=== PATIENT | female | born 1935 | race Caucasian/White ===

== ENCOUNTER 2017-09-03 20:44 | Observation (INO) | payer MEDICARE, OTHER ==
[~2017-09-03 20:44] MED LIST: ACET325T11 PO; CALC600T10 PO; CRAN1000 PO; DICL75 PO; DIOV160T3 PO; META55.43 PO; OCUVTAB PO; PHILCAP2 PO; SALI0.65; TRAM50 PO; VITA500S3 PO; VYTO10TA32 PO; soy lecithin PO
[2017-09-03] MEDS ORDERED: SODIUM CHLORIDE 0.9% FLUSH 10 ML FLUSH IV FLUSH PRN ×2 (21:15→23:45)
[2017-09-03 21:19] VITALS: BP 141/67; PULSE 76; RESP 16; TEMP 98.4; O2SAT 96
--- NOTE | 2017-09-03 21:38 | RADRPT ---
EXAM DATE/TIME: 09/03/2017 21:28 [facility] COMPARISON: No previous studies available for comparison. INDICATIONS : Altered mental status. RADIATION DOSE: 35.14 CTDIvol (mGy) MEDICAL HISTORY : Hypertension. Cardiovascular disease SURGICAL HISTORY : None. ENCOUNTER: Initial ACUITY: 1 day PAIN SCALE: 0/10 LOCATION: cranial TECHNIQUE: Multiple contiguous axial images were obtained of the head. Using automated exposure control and adj ustment of the mA and/or kV according to patient size, radiation dose was kept as low as reasonably a chievable to obtain optimal diagnostic quality images. DICOM format image data is available electro nically for review and comparison. FINDINGS: CEREBRUM: The ventricles are normal for age. 6 mm left frontal osteoma or densely calcified meningioma. Adjace nt brain appears normal. No evidence of midline shift, concerning mass lesion, hemorrhage or acute in farction. No extra-axial fluid collections are seen. POSTERIOR FOSSA: The cerebellum and brainstem are intact. The 4th ventricle is midline. The cerebellopontine angle i s unremarkable. EXTRACRANIAL: There is mucoperiosteal thickening of the visualized ethmoid and left greater than right maxillary ai r cells. SKULL: The calvaria is intact. No evidence of skull fracture. CONCLUSION: No acute intracranial abnormality. Sinusitis. Slick Chou MD on September 03, 2017 at 21:34 Board Certified Radiologist. This report was verified electronically.
--- NOTE | 2017-09-03 21:43 | PD ---
HPI Chief Complaint: Back/ Neck Pain or Injury Time Seen by Provider: 20:52 Travel History International Travel<30 days: No Contact w/Intl Traveler<30days: No Traveled to known affect area: No History of Present Illness HPI Patient is an 82-year-old pleasant female in no obvious distress who presents emergency department for evaluation of low back pain and altered mental status. Per EMS the patient states that she has been having low back pain started yesterday after her stretching exercises, she pushed through her stretching exercises earlier this morning as well. According to EMS family saw her walking gingerly and thought she might be having a stroke so they called 911. Symptoms have been present all day and gradually worsening, context as above, associated with back pain. Patient's son arrives and states that when the patient tried to rise out of a chair she slumped over sideways and did not seem to be supporting one side of her body, he did also noticed that she had a facial droop on one side of her face as well. He cannot remember which. He is a former electro mechanical technologist and is fairly adamant that he saw the signs of a possible stroke. Patient on arrival really has no complaints, she states that her back was hurting her earlier and this is why she had the symptoms. PFSH Past Medical History Blood Disorders: No Heart Rhythm Problems: No Cancer: No Cardiovascular Problems: Yes High Cholesterol: Yes Chest Pain: No Congestive Heart Failure: No Dementia: Yes Diminished Hearing: No Endocrine: No Genitourinary: No Hypertension: Yes Immune Disorder: No Musculoskeletal: No Neurologic: Yes (SYNCOPE R/T SINUSES) Psychiatric: No Reproductive: No Respiratory: No Immunizations Current: Yes Menopausal: Yes : 3 Para: 2 Past Surgical History Other Surgery: Yes (SINUS SURGERY, RIGHT EAR SURGERY) Social History Alcohol Use: No Tobacco Use: No Substance Use: No Allergies-Medications (Allergen,Severity, Reaction): Coded Allergies: No Known Allergies (Unverified Allergy, Unknown, 09/03/17) Reported Meds & Prescriptions Reported Meds & Active Scripts Active Reported Saline Nasal [place] (Sodium Chloride) 0.65% [place] 2 [place] EACH NARE DIRECTED PRN Vytorin (Ezetimibe-Simvastatin) 10-20 Mg Tab 1 Tab PO HS Diovan Hct (Valsartan-Hydrochlorothiazide) 160-12.5 Mg Tab 1 Tab PO DAILY Review of Systems Except as stated in HPI: all other systems reviewed are Neg Physical Exam Narrative GENERAL: Well-developed, well-nourished elderly female in no obvious distress SKIN: Focused skin assessment warm/dry. HEAD: Atraumatic. Normocephalic. EYES: Pupils equal and round. No scleral icterus. No injection or drainage. ENT: No nasal bleeding or discharge. Mucous membranes pink and moist. NECK: Trachea midline. No JVD. CARDIOVASCULAR: Regular rate and rhythm. No murmur appreciated. RESPIRATORY: No accessory muscle use. Clear to auscultation. Breath sounds equal bilaterally. GASTROINTESTINAL: Abdomen soft, non-tender, nondistended. Hepatic and splenic margins not palpable. MUSCULOSKELETAL: No obvious deformities. No clubbing. No cyanosis. No edema. No midline CT or L-spine tenderness, extremities are atraumatic NEUROLOGICAL: Awake and alert and oriented, cranial nerves II through XII are grossly intact and nonfocal, 5 out of 5 strength in all 4 extremities. PSYCHIATRIC: Appropriate mood and affect; insight and judgment normal. Data Data Last Documented VS Vital Signs Date Time Temp Pulse Resp B/P (MAP) Pulse Ox O2 Delivery O2 Flow Rate FiO2 09/03/17 21:27 76 16 09/03/17 21:19 98.4 141/67 (91) 96 Orders Orders Electrocardiogram (09/03/17 21:08) Complete Blood Count With Diff (09/03/17 21:08) Comprehensive Metabolic Panel (09/03/17 21:08) Prothrombin Time / Inr (Pt) (09/03/17 21:08) Act Partial Throm Time (Ptt) (09/03/17 21:08) Troponin I (09/03/17 21:08) Ct Brain W/O Iv Contrast(Rout) (09/03/17 21:08) Blood Glucose (09/03/17 21:08) Ecg Monitoring (09/03/17 21:08) Iv Access Insert/Monitor (09/03/17 21:08) Oximetry (09/03/17 21:08) Sodium Chloride 0.9% Flush (Ns Flush) (09/03/17 21:15) Ct Lumb Spine W/O Contrast (09/03/17 ) Aspirin Chew (Aspirin Chew) (09/03/17 21:45) Admit Order (Ed Use Only) (09/03/17 ) TLSO (09/03/17 ) Labs Laboratory Tests Test 09/03/17 22:00 White Blood Count 11.6 TH/MM3 Red Blood Count 4.38 MIL/MM3 Hemoglobin 12.5 GM/DL Hematocrit 36.4 % Mean Corpuscular Volume 83.0 FL Mean Corpuscular Hemoglobin 28.4 PG Mean Corpuscular Hemoglobin Concent 34.2 % Red Cell Distribution Width 13.8 % Platelet Count 269 TH/MM3 Mean Platelet Volume 6.6 FL Neutrophils (%) (Auto) 73.9 % Lymphocytes (%) (Auto) 11.4 % Monocytes (%) (Auto) 10.7 % Eosinophils (%) (Auto) 3.7 % Basophils (%) (Auto) 0.3 % Neutrophils # (Auto) 8.6 TH/MM3 Lymphocytes # (Auto) 1.3 TH/MM3 Monocytes # (Auto) 1.2 TH/MM3 Eosinophils # (Auto) 0.4 TH/MM3 Basophils # (Auto) 0.0 TH/MM3 CBC Comment DIFF FINAL Differential Comment Prothrombin Time 10.2 SEC Prothromb Time International Ratio 1.0 RATIO Activated Partial Thromboplast Time 25.0 SEC Blood Urea Nitrogen 8 MG/DL Creatinine 0.73 MG/DL Random Glucose 104 MG/DL Total Protein 7.1 GM/DL Albumin 3.8 GM/DL Calcium Level 8.9 MG/DL Alkaline Phosphatase 59 U/L Aspartate Amino Transf (AST/SGOT) 26 U/L Alanine Aminotransferase (ALT/SGPT) 18 U/L Total Bilirubin 0.9 MG/DL Sodium Level 130 MEQ/L Potassium Level 3.9 MEQ/L Chloride Level 93 MEQ/L Carbon Dioxide Level 25.2 MEQ/L Anion Gap 12 MEQ/L Estimat Glomerular Filtration Rate 76 ML/MIN Troponin I LESS THAN 0.02 NG/ML MDM Medical Decision Making Medical Screen Exam Complete: Yes Emergency Medical Condition: Yes Differential Diagnosis Back pain, back fracture, TIA. Narrative Course Patient was roomed in the emergency department, she appears well and in no obvious distress. Head lengthy discussion with the family about the symptoms and the possibility of the facial droop, after much discussion I do not think that the facial droop could be excluded and needs further workup for TIA. The patient does have what appears to be a mild acute L5 compression fracture. Otherwise her initial workup was negative with an EKG CT head basic lab work: Last [address] 09/03/17 2108 Signed Impressions: Service Date/Time: Sunday, September 03, 2017 21:28 - CONCLUSION: No acute intracranial abnormality. Sinusitis. Slick Chou MD Lumbar Spine CT 09/03/17 0000 Signed Impressions: Service Date/Time: Sunday, September 03, 2017 21:32 - CONCLUSION: 1. Mild, acute superior endplate compression fracture of L5. No fracture-associated foraminal or spinal stenosis. 2. Multilevel degenerative changes as above. Slick Chou MD Discussed the results with the patient as well as Dr. Huertas for observation status and they are agreeable. Patient was placed in a TLSO brace and believe that the patient is stable for outpatient follow-up of the fracture Diagnosis Primary Impression: TIA (transient ischemic attack) Additional Impression: Compression fracture of L5 lumbar vertebra Admitting Information Admitting Physician Requests: Observation Condition: Stable Florencio Mix MD Sep 03, 2017 21:43
[2017-09-03] MEDS ORDERED: ASPIRIN 81 MG CHEW TAB CHEW ONE (21:45)
--- NOTE | 2017-09-03 21:55 | RADRPT ---
EXAM DATE/TIME: 09/03/2017 21:32 [facility] COMPARISON: SPINE LUMBAR COMPLETE W/OBLIQ, January 18, 2015, 16:44. INDICATIONS : Low back pain. RADIATION DOSE: 19.76 CTDIvol (mGy) MEDICAL HISTORY : Hypertension. Cardiovascular disease SURGICAL HISTORY : None. ENCOUNTER: Initial ACUITY: 1 day PAIN SCALE: 5/10 LOCATION: low back TECHNIQUE: Volumetric scanning of the lumbar spine was performed. Multiplanar reconstructions in the sagittal, coronal and oblique axial planes were performed. Using automated exposure control and adjustment of the mA and/or kV according to patient size, radiation dose was kept as low as reasonably achievable t o obtain optimal diagnostic quality images. DICOM format image data is available electronically for review and comparison. FINDINGS: Acute, mild severity superior endplate fracture seen of L5. No retropulsed fragments. No associated f oraminal or spinal stenosis. No subluxations. Mild disc space narrowing and mild bilateral facet osteoarthritis seen throughout the lumbar spine. M ore moderate to severe facet osteoarthritis is seen at L5/S1. There are broad-based protrusions at L2 /L3-L5/S1. There is moderate foraminal stenosis on the right at L2/L3. Moderate bilateral foraminal s tenosis seen at L4/L5 and moderate left foraminal stenosis seen at L5/S1. CONCLUSION: 1. Mild, acute superior endplate compression fracture of L5. No fracture-associated foraminal or spin al stenosis. 2. Multilevel degenerative changes as above. Slick Chou MD on September 03, 2017 at 21:49 Board Certified Radiologist. This report was verified electronically.
[2017-09-03] MEDS ORDERED: VYTO10TA8 PO (22:25)
[2017-09-03] MEDS ORDERED: DIOV160T3 PO (22:25)
[2017-09-03] MEDS ORDERED: SALI0.653 EACH NARE (22:25)
[2017-09-03 22:38] LABS: AUTOMATED NEUTROPHIL # 8.6 TH/MM3 (1.8-7.7); BASOPHIL % 0.3 % (0.0-2.0); EOSINOPHIL # 0.4 TH/MM3 (0-0.4); EOSINOPHIL % 3.7 % (0.0-4.0); HEMATOCRIT 36.4 % (35.0-46.0); HEMOGLOBIN 12.5 GM/DL (11.6-15.3); LYMPH % 11.4 % (9.0-44.0); LYMPHOCYTE # 1.3 TH/MM3 (1.0-4.8); MEAN CORPUSCULAR HEMOGLOBIN 28.4 PG (27.0-34.0); MEAN CORPUSCULAR HGB CONC 34.2 % (32.0-36.0); MEAN PLATELET VOLUME 6.6 FL (7.0-11.0); MONO % 10.7 % (0.0-8.0); MONOCYTE # 1.2 TH/MM3 (0-0.9); NEUT % 73.9 % (16.0-70.0); PLATELET COUNT 269 TH/MM3 (150-450); RED BLOOD COUNT 4.38 MIL/MM3 (4.00-5.30); RED CELL DISTRIBUTION WIDTH 13.8 % (11.6-17.2); WHITE BLOOD COUNT 11.6 TH/MM3 (4.0-11.0)
[2017-09-03 22:57] LABS: PROTHROMBIN TIME - PATIENT 10.2 SEC (9.8-11.6)
[2017-09-03 23:08] LABS: ALBUMIN 3.8 GM/DL (3.4-5.0); ALT (GPT) 18 U/L (10-53); AST (GOT) 26 U/L (15-37); BICARBONATE 25.2 MEQ/L (21.0-32.0); BLOOD UREA NITROGEN 8 MG/DL (7-18); CALCIUM 8.9 MG/DL (8.5-10.1); CHLORIDE 93 MEQ/L (98-107); CREATININE 0.73 MG/DL (0.50-1.00); GLOMERULAR FILTRATION RATE 76 ML/MIN (>89); GLUCOSE,RANDOM 104 MG/DL (74-106); SODIUM (NA) 130 MEQ/L (136-145)
[2017-09-03 23:10] LABS: ALKALINE PHOSPHATASE 59 U/L (45-117); TOTAL BILIRUBIN ADULT 0.9 MG/DL (0.2-1.0); TOTAL PROTEIN 7.1 GM/DL (6.4-8.2); TROPONIN I LESS THAN 0.02 NG/ML (0.02-0.05)
--- NOTE | 2017-09-03 23:44 | HHI.HP ---
HPI [facility] Primary [facility] Physician Unknown Admission Diagnosis Possible TIA, Acute COmpression fracutre L5 Diagnoses: (1) TIA (transient ischemic attack) Diagnosis: Principal (2) Compression fracture of L5 lumbar vertebra Diagnosis: Principal (3) Intractable back pain Diagnosis: Principal Travel History International Travel<30 Days: No Contact w/Intl Traveler <30 Da: No Traveled to Known Affected Are: No History of Present Illness This is an 82-year-old female with a PMH of HTN and Hyperlipidemia who presented to the ER with complaints of severe back pain starting earlier this morning. Pt states that she "just got out of bed like this". Denies any injury or fall. Does note that she does exercises for her legs where she holds onto the back of a chair and does side leg raises in addition to squats, however no pain w/ exercises yesterday. Today, attempted to get out of bed and had severe back pain, 10/10, non-radiating. Family also notes pt w/ gait instability, falling to one side and slight facial droop, pt however denies this. On arrival, BP 141/67, HR 76, O2 sat 96% RA, Afebrile. WBC 11.6. Chemistry essentially unremarkable except for GFR 76. Troponin negative. INR 1.0. CT Head with no acute findings. CT L-spine mild acute superior endplate compression fracture of L5, no fracture associated foraminal or spinal stenosis. Review of Systems Except as stated in HPI: all other systems reviewed are Neg ROS: 14 point review of systems otherwise negative. Past Family Social History Past Medical History PMH: HTN and Hyperlipidemia Past Surgical History PAST SURGICAL HISTORY: Sinus Surgery, Right Ear Surgery Allergies: Coded Allergies: No Known Allergies (Unverified Allergy, Unknown, 09/03/17) Family History PAST FAMILY HISTORY: Reviewed. No h/o DM or CAD Social History PAST SOCIAL HISTORY: Negative for alcohol, tobacco or drugs. Physical Exam Vital Signs Vital Signs Date Time Temp Pulse Resp B/P (MAP) Pulse Ox O2 Delivery O2 Flow Rate FiO2 09/03/17 21:27 76 16 09/03/17 21:19 98.4 76 16 141/67 (91) 96 Physical Exam PE: GENERAL: Extremely pleasant elderly white female in no acute distress. Normal speech. HEENT: PERRLA, EOMI. No scleral icterus or conjunctival pallor. No lid lag or facial droop. CARDIOVASCULAR: Regular rate and rhythm. No obvious murmurs to auscultation. No chest tenderness to palpation. RESPIRATORY: No obvious rhonchi or wheezing. Clear to auscultation. Breath sounds equal bilaterally. GASTROINTESTINAL: Abdomen soft, non-tender, nondistended. BS normal. MUSCULOSKELETAL: Extremities without clubbing, cyanosis, or edema. No obvious deformities. NEUROLOGICAL: Awake, alert and oriented x4. No focal neurologic deficits. Moving both upper and lower extremities spontaneously. Laboratory Laboratory Tests Test 09/03/17 22:00 White Blood Count 11.6 Red Blood Count 4.38 Hemoglobin 12.5 Hematocrit 36.4 Mean Corpuscular Volume 83.0 Mean Corpuscular Hemoglobin 28.4 Mean Corpuscular Hemoglobin Concent 34.2 Red Cell Distribution Width 13.8 Platelet Count 269 Mean Platelet Volume 6.6 Neutrophils (%) (Auto) 73.9 Lymphocytes (%) (Auto) 11.4 Monocytes (%) (Auto) 10.7 Eosinophils (%) (Auto) 3.7 Basophils (%) (Auto) 0.3 Neutrophils # (Auto) 8.6 Lymphocytes # (Auto) 1.3 Monocytes # (Auto) 1.2 Eosinophils # (Auto) 0.4 Basophils # (Auto) 0.0 CBC Comment DIFF FINAL Differential Comment Prothrombin Time 10.2 Prothromb Time International Ratio 1.0 Activated Partial Thromboplast Time 25.0 Blood Urea Nitrogen 8 Creatinine 0.73 Random Glucose 104 Total Protein 7.1 Albumin 3.8 Calcium Level 8.9 Alkaline Phosphatase 59 Aspartate Amino Transf (AST/SGOT) 26 Alanine Aminotransferase (ALT/SGPT) 18 Total Bilirubin 0.9 Sodium Level 130 Potassium Level 3.9 Chloride Level 93 Carbon Dioxide Level 25.2 Anion Gap 12 Estimat Glomerular Filtration Rate 76 Troponin I LESS THAN 0.02 Result Diagram: 09/03/17219909/03/172199 Caprini VTE Risk Assessment Caprini VTE Risk Assessment: No/Low Risk (score <= 1) Caprini Risk Assessment Model Point Value = 1 Point Value = 2 Point Value = 3 Point Value = 5 Age 41-60 Minor surgery BMI > 25 kg/m2 Swollen legs Varicose veins or History of unexplained or recurrent spontaneous Oral contraceptives or hormone replacement Sepsis (< 1 month) Serious lung disease, including pneumonia (< 1 month) Abnormal pulmonary function Acute myocardial infarction Congestive heart failure (< 1 month) History of inflammatory bowel disease Medical patient at bed rest Age 61-74 Arthroscopic surgery Major open surgery (> 45 min) Laparoscopic surgery (> 45 min) Malignancy Confined to bed (> 72 hours) Immobilizing plaster cast Central venous access Age >= 75 History of VTE Family history of VTE Factor V Leiden Prothrombin [id number] Lupus anticoagulant Anticardiolipin antibodies Elevated serum homocysteine Heparin-induced thrombocytopenia Other congenital or acquired thrombophilia Stroke (< 1 month) Elective arthroplasty Hip, pelvis, or leg fracture Acute spinal cord injury (< 1 month) Prophylaxis Regimen Total Risk Factor Score Risk Level Prophylaxis Regimen 0-1 Low Early ambulation 2 Moderate Order ONE of the following: *Sequential Compression Device (SCD) *Heparin 5000 units SQ BID 3-4 Higher Order ONE of the following medications: *Heparin 5000 units SQ TID *Enoxaparin/Lovenox 40 mg SQ daily (WT < 150 kg, CrCl > 30 mL/min) *Enoxaparin/Lovenox 30 mg SQ daily (WT < 150 kg, CrCl > 10-29 mL/min) *Enoxaparin/Lovenox 30 mg SQ BID (WT < 150 kg, CrCl > 30 mL/min) AND/OR *Sequential Compression Device (SCD) 5 or more Highest Order ONE of the following medications: *Heparin 5000 units SQ TID (Preferred with Epidurals) *Enoxaparin/Lovenox 40 mg SQ daily (WT < 150 kg, CrCl > 30 mL/min) *Enoxaparin/Lovenox 30 mg SQ daily (WT < 150 kg, CrCl > 10-29 mL/min) *Enoxaparin/Lovenox 30 mg SQ BID (WT < 150 kg, CrCl > 30 mL/min) AND *Sequential Compression Device (SCD) Assessment and Plan Problem List: (1) TIA (transient ischemic attack) ICD Code: G45.9 - Transient cerebral ischemic attack, unspecified (2) Compression fracture of L5 lumbar vertebra ICD Code: S32.050A - Wedge compression fracture of fifth lumbar vertebra, initial encounter for closed fracture (3) Intractable back pain ICD Code: M54.9 - Dorsalgia, unspecified Assessment and Plan A/P: 1. TIA: family reports gait instability and facial droop, now resolved, normal neuro exam. CT Head w/ no acute findings, images reviewed by me. Admit for Observation, check MRI Brain to eval for possible underlying CVA, Neuro Cheks. Check Lipid Profile, start ASA, resume home Vytorin. 2. L5 Compression Fx: CT L-Spine w/ mild, acute superior endplate compression fracture L5, no foraminal or spinal stenosis, images reviewed by me. TLSO, Consult NxSx for further evaluation, PT for eval/tx. 3. Intractable Back Pain: secondary to above, analgesics/antiemetics, TLSO brace. 4. DVT Prophylaxis: SCD/Teds. 5. Social work for DC planning as needed. 6. Case discussed at length with the ER physician, lab/record/imaging reviewed by me. Isidra Castellanos MD Sep 03, 2017 23:44
[2017-09-03] MEDS ORDERED: ACETAMINOPHEN/HYDROcodone 325 MG/5 MG TAB PO PRN (23:45)
[2017-09-03] MEDS ORDERED: LACTULOSE SYRUP 20 GM/30 ML CUP PO PRN (23:45)
[2017-09-03] MEDS ORDERED: SENNOSIDES 8.6 MG TAB PO PRN (23:45)
[2017-09-03] MEDS ORDERED: MAGNESIUM HYDROXIDE SUSP 30 ML CUP PO PRN (23:45)
[2017-09-03] MEDS ORDERED: MORPHINE SULFATE 2 MG/ML SYRINGE IV PUSH PRN (23:45)
[2017-09-03] MEDS ORDERED: ACETAMINOPHEN 325 MG TAB PO PRN (23:45)
[2017-09-03] MEDS ORDERED: BISACODYL 10 MG SUPP RECTAL PRN (23:45)
[2017-09-03] MEDS ORDERED: ONDANSETRON HCL 4 MG/2 ML VIAL IVP PRN (23:45)
[2017-09-04] VITALS (8 sets, daily range): BP systolic 117–149; BP diastolic 59–70; PULSE 65–82; RESP 16–20; TEMP 96.6–98.7; O2SAT 96–99
[2017-09-04 07:43] LABS: AUTOMATED NEUTROPHIL # 4.4 TH/MM3 (1.8-7.7); BASOPHIL % 0.2 % (0.0-2.0); EOSINOPHIL # 0.4 TH/MM3 (0-0.4); EOSINOPHIL % 5.9 % (0.0-4.0); HEMATOCRIT 34.7 % (35.0-46.0); HEMOGLOBIN 11.8 GM/DL (11.6-15.3); LYMPH % 19.6 % (9.0-44.0); LYMPHOCYTE # 1.4 TH/MM3 (1.0-4.8); MEAN CELL VOLUME 82.7 FL (80.0-100.0); MEAN CORPUSCULAR HEMOGLOBIN 28.2 PG (27.0-34.0); MEAN CORPUSCULAR HGB CONC 34.1 % (32.0-36.0); MEAN PLATELET VOLUME 6.5 FL (7.0-11.0); MONO % 14.4 % (0.0-8.0); MONOCYTE # 1.1 TH/MM3 (0-0.9); NEUT % 59.9 % (16.0-70.0); PLATELET COUNT 261 TH/MM3 (150-450); RED BLOOD COUNT 4.19 MIL/MM3 (4.00-5.30); RED CELL DISTRIBUTION WIDTH 13.6 % (11.6-17.2); WHITE BLOOD COUNT 7.3 TH/MM3 (4.0-11.0)
[2017-09-04 08:04] LABS: ALBUMIN 3.3 GM/DL (3.4-5.0); AST (GOT) 18 U/L (15-37); BICARBONATE 28.1 MEQ/L (21.0-32.0); BLOOD UREA NITROGEN 6 MG/DL (7-18); CALCIUM 8.9 MG/DL (8.5-10.1); CHLORIDE 98 MEQ/L (98-107); CREATININE 0.56 MG/DL (0.50-1.00); GLOMERULAR FILTRATION RATE 104 ML/MIN (>89); GLUCOSE,RANDOM 96 MG/DL (74-106); SODIUM (NA) 135 MEQ/L (136-145)
[2017-09-04 08:05] LABS: ALT (GPT) 14 U/L (10-53); CHOLESTEROL 131 MG/DL (120-200); TRIGLYCERIDES 44 MG/DL (42-150)
[2017-09-04 08:08] LABS: ALKALINE PHOSPHATASE 53 U/L (45-117); CHOLESTEROL/ HDL RATIO 1.71 RATIO; HDL CHOLESTEROL 76.3 MG/DL (40.0-60.0); LDL CHOLESTEROL 46 MG/DL (0-99); TOTAL BILIRUBIN ADULT 0.9 MG/DL (0.2-1.0); TOTAL PROTEIN 6.3 GM/DL (6.4-8.2)
[2017-09-04] MEDS: HYDROCHLOROTHIAZIDE 12.5 MG CAP PO SCH (08:18)
[2017-09-04] MEDS: SODIUM CHLORIDE 0.9% FLUSH 10 ML FLUSH IV FLUSH SCH ×2 (08:19→21:00)
[2017-09-04] MEDS: VALSARTAN 160 MG TAB PO SCH (08:19)
[2017-09-04] MEDS: DOCUSATE SODIUM 50 MG/SENNA 8.6 MG TAB PO SCH ×2 (08:20→21:19)
[2017-09-04] MEDS ORDERED: ASPIRIN EC 81 MG TABEC PO SCH (09:00)
[2017-09-04] MEDS ORDERED: ECASA81 PO (09:20)
--- NOTE | 2017-09-04 09:41 | HHI.PR ---
Subjective Remarks Follow up on patient with L5 compression fracture and possible TIA/CVA. Patient seen and examined. Patient has no complaints and is asking when she can go home. She denies any slurred speech, dizziness, lightheadedness, headache or vision changes. She denies any weakness or numbness/tingling. Per patients family, patient had episode of facial droop, weakness and falling to one side. Patients son is a former nicking machine operator is believes she was demonstrating signs of a stroke. Patient denies any of these symptoms. She denies any fever or chills. She denies any chest pain or shortness of breath. She denies any nausea, vomiting or abdominal pain. She does report some back pain when trying to get up. She denies any recent falls. She does do leg exercises daily. Objective Vitals Vital Signs Date Time Temp Pulse Resp B/P (MAP) Pulse Ox O2 Delivery O2 Flow Rate FiO2 09/04/17 07:24 65 09/04/17 03:32 98.4 67 17 132/59 (83) 96 09/04/17 01:13 98.2 65 16 136/63 (87) 96 09/03/17 21:27 76 16 09/03/17 21:19 98.4 76 16 141/67 (91) 96 Result Diagram: 09/04/17 0658 09/04/17 0658 Imaging Last Impressions Head CT 09/03/172107 Signed Impressions: Service Date/Time: Sunday, September 03, 2017 21:28 - CONCLUSION: No acute intracranial abnormality. Sinusitis. Slick Chou MD Lumbar Spine CT 09/03/17 0000 Signed Impressions: Service Date/Time: Sunday, September 03, 2017 21:32 - CONCLUSION: 1. Mild, acute superior endplate compression fracture of L5. No fracture-associated foraminal or spinal stenosis. 2. Multilevel degenerative changes as above. Slick Chou MD Objective Remarks GENERAL: Extremely pleasant WDWN elderly white female in no acute distress. Awake and alert. Sitting up in bed. No facial asymmetry noted. HEENT: NC/AT. PERRLA, EOMI. No scleral icterus or conjunctival pallor. No lid lag or facial droop. No nasal drainage or purulence. MMM. CARDIOVASCULAR: Regular rate and rhythm. No obvious murmurs to auscultation. No chest tenderness to palpation. RESPIRATORY: Nonlabored. No obvious rhonchi or wheezing. Clear to auscultation. Breath sounds equal bilaterally. GASTROINTESTINAL: Abdomen soft, non-tender, nondistended. BS normal. MUSCULOSKELETAL: Extremities without clubbing, cyanosis, or edema. No obvious deformities. NEUROLOGICAL: Awake, alert and oriented x4. No focal neurologic deficits. Moving both upper and lower extremities spontaneously. Normal speech. PSYCHIATRIC: Appropriate mood and affect. Normal insight and judgement. Procedures None Medications and IVs Current Medications Medications (Trade) Dose Ordered Sig/Piper Route Start Time Stop Time Status Last Admin (NS Flush) 2 ml UNSCH PRN IV FLUSH 09/03/17 23:45 (NS Flush) 2 ml BID IV FLUSH 09/04/17 09:00 09/04/17 08:19 (Zofran Inj) 4 mg Q6H PRN IVP 09/03/17 23:45 (Tylenol) 650 mg Q6H PRN PO 09/03/17 23:45 ([place] 5-325 Mg) 1 tab Q4H PRN PO 09/03/17 23:45 (Morphine Inj) 2 mg Q3H PRN IV PUSH 09/03/17 23:45 (Marielena-Colace) 1 tab BID PO 09/04/17 09:00 (Milk Of Magnesia Liq) 30 ml Q12H PRN PO 09/03/17 23:45 (Senokot) 17.2 mg Q12H PRN PO 09/03/17 23:45 (Dulcolax Supp) 10 mg DAILY PRN RECTAL 09/03/17 23:45 (Lactulose Liq) 30 ml DAILY PRN PO 09/03/17 23:45 (Ecotrin Ec) 81 mg DAILY PO 09/04/17 09:00 09/04/17 08:19 (Diovan) 160 mg DAILY PO 09/04/17 09:00 09/04/17 08:19 (Zetia) 10 mg HS PO 09/04/17 21:00 (Pravachol) 40 mg HS PO 09/04/17 21:00 (Microzide) 12.5 mg DAILY PO 09/04/17 09:00 09/04/17 08:18 A/P Problem List: (1) TIA (transient ischemic attack) ICD Code: G45.9 - Transient cerebral ischemic attack, unspecified (2) Compression fracture of L5 lumbar vertebra ICD Code: S32.050A - Wedge compression fracture of fifth lumbar vertebra, initial encounter for closed fracture (3) Intractable back pain ICD Code: M54.9 - Dorsalgia, unspecified Assessment and Plan 82-year-old female with a PMH of HTN and Hyperlipidemia who presented to the ER with complaints of severe back pain starting earlier this morning. Per patients son, she slumped over sideways and could not support one side of her body and had facial droop on one side of her face. Probable TIA: family reports gait instability and facial droop, now resolved, normal neuro exam. CT Head w/ no acute findings TG 44, Chol 131, LDL 46 -Consult Neurology, appreciate recommendations -MRI brain ordered/pending - follow up on results -obtain carotid US and echocardiogram -continue with neuro checks -continue on ASA 81mg daily -obtain TSH level and HgbA1c L5 Compression Fx: CT L-Spine w/ mild, acute superior endplate compression fracture L5, no foraminal or spinal stenosis. -Up with PT today. TLSO on when OOB. -Neurosurgery consulted, appreciate recommendations. ?candidate for kyphoplasty procedure. -obtain Vitamin D level Intractable Back Pain: secondary to above -continue on analgesics/antiemetics -TLSO brace Hypertension: chronic, BP controlled -continue on home dose of Diovan HCT Hyperlipidemia -continue on home dose of Vytorin DVT Prophylaxis: SCD/Teds Discharge Planning Not ready for discharge, TIA/CVA workup in progress. Acute compression fracture L spine, intractable back pain, awaiting Neurology and Neurosurgery consult/Sara Andrade Sep 04, 2017 09:41
--- NOTE | 2017-09-04 10:24 | EKG ---
Date Performed: 09/03/2017 Time Performed: 21:22:57 PTAGE: 82 years EKG: Sinus rhythm NORMAL ECG PREVIOUS TRACING : 04/30/2014 09.31 Since the previous tracing, no significant change noted DOCTOR: Gaurang Milner Interpretating Date/Time 09/04/2017 10:23:52
--- NOTE | 2017-09-04 10:32 | RADRPT ---
EXAM DATE/TIME: 09/04/2017 09:56 [facility] COMPARISON: No previous studies available for comparison. INDICATIONS : Slurred speech. MEDICAL HISTORY : Dementia. Hypertension. Syncope. Skin cancer. SURGICAL HISTORY : Tonsillectomy. Sinus surgery. Right ear surgery. Skin cancer removed. ENCOUNTER: Initial ACUITY: 1 day PAIN SCORE: 0/10 LOCATION: Bilateral neck PEAK SYSTOLIC VELOCITIES (cm/sec): ICA/CCA RATIO: Right: 1.9 Left: 0.9 ICA: Right: 103 Left: 111 CCA: Right: 55 Left: 123 ECA: Right: 126 Left: 105 VERTEBRAL: Right: 51 antegrade Left: 50 antegrade Elevated flow velocities and ICA/CCA ratios have been found to correlate with increased degrees of vessel stenosis, calculated as percentage of diameter relative to a normal segment of distal ICA/CCA FINDINGS: RIGHT CAROTID: No significant stenosis is visualized. The waveforms are within normal limits. LEFT CAROTID: No significant stenosis is visualized. The waveforms are within normal limits. VERTEBRAL ARTERIES: Antegrade flow is seen in both vertebral arteries. MISCELLANEOUS: None. CONCLUSION: 1. No evidence for hemodynamically significant stenosis. 2. Antegrade flow in the bilateral vertebral arteries. Kam Santo MD on September 04, 2017 at 10:29 Board Certified Radiologist. This report was verified electronically.
--- NOTE | 2017-09-04 12:22 | MB ---
cc: Yung BONDS DATE: 09/04/2017 CHIEF COMPLAINT: Back pain. HISTORY OF PRESENT ILLNESS: This 82-year-old female patient with multiple medical problems woke up in the morning complaining of severe pain without radiation to her legs. Because of this, the patient was brought to the ER for evaluation. She reports she has been doing some exercises for her lower back and she has a history of syncope in the past. The patient presently, as reported, states that she does not have any radiating pain, and the pain today has improved. The patient was seen in the ER, underwent CT scan of the LS spine, which showed a compression fracture of L5. Neurosurgery consult was placed. PAST MEDICAL HISTORY: Remarkable for hypertension and hyperlipidemia. PAST SURGICAL HISTORY: Reveals sinus surgery and right ear surgery. ALLERGIES: SHE HAS NO KNOWN ALLERGIES. FAMILY HISTORY: Unremarkable. SOCIAL HISTORY: Unremarkable as well. PHYSICAL EXAMINATION: VITAL SIGNS: Blood pressure 141/67, pulse is 76, temperature of 98.4, respirations 16, pulse oximetry of 16. HEENT: Unremarkable. GENERAL: The patient is pleasant, in no acute distress. NECK: Supple with good carotid pulses bilaterally. CHEST: Symmetric. LUNGS: Clear. HEART: Shows a regular rhythm with normal heart sounds. ABDOMEN: Soft and nontender. EXTREMITIES: Clear. NEUROLOGIC: She is alert and awake. She follows commands well. She has a fluent speech. She is oriented x 3. Her affect is normal. Cranial nerves 2-12 are intact. Motor exam is 5+/5. Sensory exam is intact to touch. Deep tendon reflexes are 1+ at all sites including the knees and trace at the ankles. IMAGING STUDIES: Review of a CT scan of the lumbar spine shows evidence of a mild acute fracture of the superior endplate of L5. No displacement is seen. OVERALL IMPRESSION: Mild compression fracture of L5. No instability is noted. PLAN: Recommendation at this time is to place the patient in a lumbar brace and start ambulating the patient. Since her pain is controlled, she may be discharged home from a neurosurgical standpoint. Yung LUTHER/SCOTT , 11:49 AM , 12:21 PM YUE
--- NOTE | 2017-09-04 12:55 | RADRPT ---
EXAM DATE/TIME: 09/04/2017 11:06 [facility] COMPARISON: CT BRAIN W/O CONTRAST, September 03, 2017, 21:28. INDICATIONS : TIA. MEDICAL HISTORY : None. SURGICAL HISTORY : Skin CA removal. ENCOUNTER: Initial ACUITY: 1 day PAIN SCORE: 0/10 LOCATION: cranial TECHNIQUE: Multiplanar, multisequence MRI of the brain was performed without contrast. FINDINGS: There is diffuse atrophy and moderate increased flair signal the periventricular white matter charact eristic of chronic microvascular ischemic disease. Mucous retention cyst left maxillary sinus. No sig ns of intracranial hemorrhage or concerning mass. There is a densely calcified extra-axial mass in th e left frontal region again noted measuring 8 mm in characteristic of a meningioma. CONCLUSION: Atrophy and white matter disease. No acute findings. Kam Santo MD on September 04, 2017 at 11:29 Board Certified Radiologist. This report was verified electronically.
--- NOTE | 2017-09-04 17:58 | HHI.FF ---
Face to Face Verification Diagnosis: (1) Impaired mobility and activities of daily living (2) Physical deconditioning (3) Balance problem (4) Compression fracture of L5 lumbar vertebra (5) Intractable back pain Physical Therapy Order: Evaluate and Treat, Improve ambulation, Strength and gait training I have seen patient Maxine Fontaine on 09/04/17. My clinical findings support the need for the requested home health care services because: Deconditioned w/ increased weakness High risk of falls I certify that my clinical findings support that this patient is homebound because: Unsteady gait/balance Unsafe to leave home unassisted Unable to use public transportation Sara Johnson Sep 04, 2017 17:58
[2017-09-04] MEDS ORDERED: EZETIMIBE 10 MG TAB PO SCH (21:00)
[2017-09-04] MEDS ORDERED: NON-FORMULARY DRUG (Ezetimibe-Simvastatin (Vytorin) 1 TAB) PO SCH (21:00)
[2017-09-04] MEDS ORDERED: PRAVASTATIN SOD 40 MG TAB PO SCH (21:00)
[2017-09-04] MEDS ORDERED: GLUCAGON 1 MG/ML VIAL OTHER PRN (21:45)
[2017-09-04] MEDS ORDERED: DEXTROSE 50% IN WATER 50 ML VIAL(D50) IV PUSH PRN (21:45)
[2017-09-04] MEDS ORDERED: SODIUM CHLORIDE 0.9% FLUSH 10 ML FLUSH IV FLUSH PRN (21:45)
[2017-09-05] VITALS (7 sets, daily range): BP systolic 116–150; BP diastolic 58–68; PULSE 68–87; RESP 16–20; TEMP 98.2–98.7; O2SAT 95–99
[2017-09-05] MEDS: INSULIN ASPART SUPPLEMENTAL SCALE SQ SCH ×3 (08:00→17:00)
[2017-09-05] MEDS ORDERED: ACETAMINOPHEN/HYDROcodone 325 MG/7.5 MG TAB PO PRN (08:30)
--- NOTE | 2017-09-05 08:40 | HHI.PR ---
Subjective Remarks Follow up on patient with L5 compression fracture and possible TIA/CVA. Patient seen and examined. Patient states she feels well. She is hoping to go home today. She denies any slurred speech, weakness, dizziness, lightheadedness , headache or vision changes. She does report back pain when she moves. She denies any lower extremity weakness, numbness/tingling or saddle paresthesias. She denies any fever or chills. She denies any chest pain or dyspnea. She reports problems with constipation and reports her last BM was 3 days ago. Objective Vitals Vital Signs Date Time Temp Pulse Resp B/P (MAP) Pulse Ox O2 Delivery O2 Flow Rate FiO2 09/05/17 07:27 98.4 72 18 150/65 (93) 95 09/05/17 03:23 98.4 72 16 116/58 (77) 98 09/04/17 23:07 98.7 70 16 133/65 (87) 99 09/04/17 22:27 98 09/04/17 21:30 18 09/04/17 20:00 97.8 82 16 117/67 (84) 98 09/04/17 16:00 97.1 72 20 149/70 (96) 97 I/O 09/04/17 09/04/17 09/04/17 09/05/17 09/05/17 09/05/17 07:00 15:00 23:00 07:00 15:00 23:00 Intake Total 400 ml Balance 400 ml Intake Oral 400 ml # Voids 3 Result Diagram: 09/04/17 0658 09/04/17 0658 Imaging Last Impressions Carotid Artery Ultrasound 09/04/17 0000 Signed Impressions: Service Date/Time: Monday, September 04, 2017 09:56 - CONCLUSION: 1. No evidence for hemodynamically significant stenosis. 2. Antegrade flow in the bilateral vertebral arteries. Kam Santo MD Brain MRI 09/04/17 0000 Signed Impressions: Service Date/Time: Monday, September 04, 2017 11:06 - CONCLUSION: Atrophy and white matter disease. No acute findings. Kam Santo MD Head CT 09/03/172107 Signed Impressions: Service Date/Time: Sunday, September 03, 2017 21:28 - CONCLUSION: No acute intracranial abnormality. Sinusitis. Slick Chou MD Lumbar Spine CT 09/03/17 0000 Signed Impressions: Service Date/Time: Sunday, September 03, 2017 21:32 - CONCLUSION: 1. Mild, acute superior endplate compression fracture of L5. No fracture-associated foraminal or spinal stenosis. 2. Multilevel degenerative changes as above. Slick Chou MD Objective Remarks GENERAL: Extremely pleasant WDWN elderly white female in no acute distress. Awake and alert. Sitting up in bed. No facial asymmetry noted. Appears comfortable. HEENT: NC/AT. PERRLA, EOMI. No scleral icterus or conjunctival pallor. No lid lag or facial droop. No nasal drainage or purulence. MMM. CARDIOVASCULAR: Regular rate and rhythm. No obvious murmurs to auscultation. No chest tenderness to palpation. RESPIRATORY: Nonlabored. No obvious rhonchi or wheezing. Clear to auscultation. Breath sounds equal bilaterally. GASTROINTESTINAL: Abdomen soft, non-tender, nondistended. BS normal. MUSCULOSKELETAL: Extremities without clubbing, cyanosis, or edema. No obvious deformities. ROM lumbar spine not tested. NEUROLOGICAL: Awake, alert and oriented x4. No focal neurologic deficits. Moving both upper and lower extremities spontaneously. Normal speech. PSYCHIATRIC: Appropriate mood and affect. Normal insight and judgement. Procedures None Medications and IVs Current Medications Medications (Trade) Dose Ordered Sig/Piper Route Start Time Stop Time Status Last Admin (Zofran Inj) 4 mg Q6H PRN IVP 09/03/17 23:45 (Tylenol) 650 mg Q6H PRN PO 09/03/17 23:45 ([place] 5-325 Mg) 1 tab Q4H PRN PO 09/03/17 23:45 (Morphine Inj) 2 mg Q3H PRN IV PUSH 09/03/17 23:45 09/04/17 21:20 (Marielena-Colace) 1 tab BID PO 09/04/17 09:00 09/04/17 21:19 (Milk Of Magnesia Liq) 30 ml Q12H PRN PO 09/03/17 23:45 (Senokot) 17.2 mg Q12H PRN PO 09/03/17 23:45 (Dulcolax Supp) 10 mg DAILY PRN RECTAL 09/03/17 23:45 (Lactulose Liq) 30 ml DAILY PRN PO 09/03/17 23:45 (Diovan) 160 mg DAILY PO 09/04/17 09:00 09/04/17 08:19 (Zetia) 10 mg HS PO 09/04/17 21:00 09/04/17 21:00 (Pravachol) 40 mg HS PO 09/04/17 21:00 09/04/17 21:19 (Microzide) 12.5 mg DAILY PO 09/04/17 09:00 09/04/17 08:18 (Vitamin D3) 1,000 units DAILY PO 09/05/17 09:00 (NS Flush) 2 ml BID IV FLUSH 09/05/17 09:00 (NS Flush) 2 ml UNSCH PRN IV FLUSH 09/04/17 21:45 (Aspirin) 325 mg DAILY PO 09/05/17 09:00 (Plavix) 75 mg DAILY PO 09/05/17 09:00 (NovoLOG SUPPLEMENTAL SCALE) 1 ACHS SQ 09/05/17 08:00 (D50w (Vial) Inj) 50 ml UNSCH PRN IV PUSH 09/04/17 21:45 (Glucagon Inj) 1 mg UNSCH PRN OTHER 09/04/17 21:45 A/P Problem List: (1) TIA (transient ischemic attack) ICD Code: G45.9 - Transient cerebral ischemic attack, unspecified (2) Compression fracture of L5 lumbar vertebra ICD Code: S32.050A - Wedge compression fracture of fifth lumbar vertebra, initial encounter for closed fracture (3) Intractable back pain ICD Code: M54.9 - Dorsalgia, unspecified Assessment and Plan 82-year-old female with a PMH of HTN and Hyperlipidemia who presented to the ER with complaints of severe back pain starting earlier this morning. Per patients son, she slumped over sideways and could not support one side of her body and had facial droop on one side of her face. Probable TIA: family reports gait instability and facial droop, now resolved, normal neuro exam. CT Head w/ no acute findings TG 44, Chol 131, LDL 46 MRI shows no acute findings Carotid US shows no e/o hemodynamically significant stenosis TSH WNL Neurology following, appreciate assistance. Started on Plavix and full dose ASA. Cleared for discharge from Neuro standpoint once echo results. -echocardiogram ordered/awaiting completion of study and report -continue with neuro checks -continue on ASA 325mg x 3 days and Plavix 75mg daily -HgbA1c 5.3 L5 Compression Fx: CT L-Spine w/ mild, acute superior endplate compression fracture L5, no foraminal or spinal stenosis. Nondisplaced. No instability. Cleared for discharge from neurosurgery -TLSO on when OOB. -pain management -PT recommends [facility] PT at discharge Vitamin D deficiency, mild Vit D level 27.7 -start on Vitamin D 1000mcg daily Hypertension: chronic, BP controlled -continue on home dose of Diovan HCT Hyperlipidemia -continue on home dose of Vytorin DVT Prophylaxis: SCD/Teds 1708 Echocardiogram resulted with EF 55-60%. Doppler parameters are consistent with impaired left ventricular relaxtion ( grade 1 diastolic dysfunction). Discharge patient to home Condition on discharge: Improved Heart healthy Diet as tolerated Activity per PT recommendations. Wear TLSO brace when out of bed Rx written: Plavix, ASA 325mg, Vitamin D Follow-up with primary care physician, neurosurgery and Neurology Sara Johnson Sep 05, 2017 08:40
[2017-09-05] MEDS ORDERED: CHOL1000 PO (08:42)
[2017-09-05] MEDS ORDERED: ASA325 PO ×2 (08:42→12:28)
[2017-09-05] MEDS ORDERED: PLAV75TA29 PO (08:42)
[2017-09-05] MEDS ORDERED: SODIUM CHLORIDE 0.9% FLUSH 10 ML FLUSH IV FLUSH SCH (09:00)
[2017-09-05] MEDS ORDERED: CLOPIDOGREL 75 MG TAB PO SCH (09:00)
[2017-09-05] MEDS ORDERED: CHOLECALCIFEROL (VIT D3) 1000 UNIT TAB PO SCH (09:00)
[2017-09-05] MEDS ORDERED: POLYETHYLENE GLYCOL 17 GM PKG PO SCH (09:00)
[2017-09-05] MEDS ORDERED: ASPIRIN 325 MG TAB PO SCH (09:00)
[2017-09-05] MEDS: VALSARTAN 160 MG TAB PO SCH (09:13)
[2017-09-05] MEDS: HYDROCHLOROTHIAZIDE 12.5 MG CAP PO SCH (09:13)
[2017-09-05] MEDS: DOCUSATE SODIUM 50 MG/SENNA 8.6 MG TAB PO SCH (09:15)
--- NOTE | 2017-09-05 11:37 | HHI.FF ---
Face to Face Verification Diagnosis: (1) Impaired mobility and activities of daily living (2) Physical deconditioning (3) Balance problem (4) Compression fracture of L5 lumbar vertebra (5) Intractable back pain (6) TIA (transient ischemic attack) Physical Therapy Order: Evaluate and Treat, Improve ambulation, Strength and gait training Speech Therapy Order: To Improve: Cognitive skills Home Health Nursing Order: Medical education Signs/symptoms of disease process Medication education-adverse effect Nursing assessment with vital signs Hospice Bereavement Coordinator Order: To Evaluate: Living conditions/environment (Please assess for fall risk/ safety hazards in the home), Support services Order: To Provide: Long range planning I have seen patient Maxine Fontaine on 09/05/17. My clinical findings support the need for the requested home health care services because: Ltd mobility - disease progression Deconditioned w/ increased weakness Limited ability to care for self Impaired cognition/judgement High risk of falls I certify that my clinical findings support that this patient is homebound because: Post-op weakness Impaired cognitive ability/safety Unsteady gait/balance Unsafe to leave home unassisted Unable to use public transportation Sara Johnson Sep 05, 2017 11:37
--- NOTE | 2017-09-05 12:08 | HHI.PR ---
Review/Management Diagnosis probable TIA L5 comp fx Plan follow up on echo Ok to dc from neurology standpoint if echo negative for embolic source Continue asa and plavix 3 days then stop asa follow up with me in my office in 2-3 weeks. Diagnosis/Plan: Subjective Subjective Comments No acute events reported No headache I spoke with her son who states he witnessed sudden onset of left facial droop and unsteady gait. She is doing better with no recurrent sx, but does c/o low back pain. Active Medications Current Medications Medications (Trade) Dose Ordered Sig/Piper Route Start Time Stop Time Status Last Admin (Zofran Inj) 4 mg Q6H PRN IVP 09/03/17 23:45 (Tylenol) 650 mg Q6H PRN PO 09/03/17 23:45 ([place] 5-325 Mg) 1 tab Q4H PRN PO 09/03/17 23:45 (Marielena-Colace) 1 tab BID PO 09/04/17 09:00 09/05/17 09:15 (Milk Of Magnesia Liq) 30 ml Q12H PRN PO 09/03/17 23:45 (Senokot) 17.2 mg Q12H PRN PO 09/03/17 23:45 (Dulcolax Supp) 10 mg DAILY PRN RECTAL 09/03/17 23:45 (Lactulose Liq) 30 ml DAILY PRN PO 09/03/17 23:45 (Diovan) 160 mg DAILY PO 09/04/17 09:00 09/05/17 09:13 (Zetia) 10 mg HS PO 09/04/17 21:00 09/04/17 21:00 (Pravachol) 40 mg HS PO 09/04/17 21:00 09/04/17 21:19 (Microzide) 12.5 mg DAILY PO 09/04/17 09:00 09/05/17 09:13 (Vitamin D3) 1,000 units DAILY PO 09/05/17 09:00 09/05/17 09:14 (NS Flush) 2 ml BID IV FLUSH 09/05/17 09:00 09/05/17 09:15 (NS Flush) 2 ml UNSCH PRN IV FLUSH 09/04/17 21:45 (Aspirin) 325 mg DAILY PO 09/05/17 09:00 09/05/17 09:14 (Plavix) 75 mg DAILY PO 09/05/17 09:00 09/05/17 09:14 (NovoLOG SUPPLEMENTAL SCALE) 1 ACHS SQ 09/05/17 08:00 (D50w (Vial) Inj) 50 ml UNSCH PRN IV PUSH 09/04/17 21:45 (Glucagon Inj) 1 mg UNSCH PRN OTHER 09/04/17 21:45 (Miralax) 17 gm DAILY PO 09/05/17 09:00 09/05/17 09:15 ([place] 7.5-325 Mg) 1 tab Q6H PRN PO 09/05/17 08:30 Allergies Allergies Coded Allergies No Known Allergies (Unverified Allergy, Unknown, 09/03/17) Exam I&O / VS Vital Signs Date Time Temp Pulse Resp B/P (MAP) Pulse Ox O2 Delivery O2 Flow Rate FiO2 09/05/17 08:46 75 09/05/17 07:27 98.4 72 18 150/65 (93) 95 09/05/17 03:23 98.4 72 16 116/58 (77) 98 09/04/17 23:07 98.7 70 16 133/65 (87) 99 09/04/17 22:27 98 09/04/17 21:30 18 09/04/17 20:00 97.8 82 16 117/67 (84) 98 09/04/17 16:00 97.1 72 20 149/70 (96) 97 Exam Comments alert, oriented , speech normal CN intact MOTOR 5/5 BUE and BLE Objective Diagnostic Tests MRI brain--normal carotid US--normal ECHO--pending Rober Harding MD PhD Sep 05, 2017 12:08
--- NOTE | 2017-09-05 12:29 | MB ---
cc: Rober Harding MD, PhD Rober Harding MD PhD DATE: 09/04/2017 REASON FOR CONSULTATION: Possible TIA and back pain. HISTORY OF PRESENT ILLNESS: Ms. Fontaine is an 82-year-old woman who was brought to the ER with low back pain, alteration in mental status. Her back pain began yesterday. ____ saw her walking carefully and thought she might be having a stroke. She called 911. Her son states that when she tried to get up from a chair, she would slump over sideways. He thought she may have had a facial droop on one side. However, the patient denies this. The son is a medical aide and was adamant that he saw facial droop and signs of a stroke. PAST MEDICAL HISTORY: History of dementia, sinus surgery, right ear surgery. MEDICATIONS AT HOME: She takes aspirin 325 mg daily, Vytorin, Diovan. NEUROLOGICAL EXAMINATION: VITAL SIGNS: Blood pressure is 117/67, pulse is 82, respiratory rate 16, temperature 97.8 degrees. Higher cortical function: Alert, oriented. Speech is fluent. She follows commands. Cranial nerves are intact. There is no facial droop presently. On motor examination, there is 5/5 strength of all groups in both upper and lower extremities. There is no drift. Fine motor skills are normal. IMAGING STUDIES: MRI of the brain shows atrophy, no acute change present. Carotid ultrasound is normal with no evidence of any significant stenosis. CT brain is normal. Lumbar C-spine CT shows a compression fracture, which is mild at L5. There is no displacement. LABORATORY DATA: White count 7300, hemoglobin 11.8, hematocrit 34%, platelet count 261,000. PT 10, INR 1, APTT 25. Sodium is 135, potassium 3.5, chloride 98, CO2 is 28, BUN is 6, creatinine 0.56, GFR is 104, glucose 96, cholesterol 131, LDL 46, HDL 76. IMPRESSION: 1. Small compression fracture at L5. Recommendations per neurosurgery. 2. Possible transient ischemic attack based on the son's description. The patient is not aware of these symptoms. However, according to the records, she has a mild dementia. It may be possible that she does not recall the event. Would recommend further evaluation with an echocardiogram. Would suggest as well starting Plavix 75 mg daily for the possibility of a transient ischemic attack and stopping aspirin within 3 days. Rober Harding MD, PhD ARETHA// , 09:37 PM , 09:59 PM
[2017-09-05 13:09] LABS: HEMOGLOBIN A1C 5.3 % (4.3-6.0)
--- NOTE | 2017-09-05 16:59 | ECHRPT ---
Indication: CONCLUSIONS Technically difficult study. The left ventricular systolic function is normal with an estimated ejection fraction in the range of 55-60%. Doppler parameters are consistent with impaired left ventricular relaxtion (grade 1 diastolic dysfun ction). Trace mitral valve regurgitation. There is trace tricuspid valve regurgitation. BP: / HR: Rhythm: MEASUREMENTS (Male / Female) Normal Values Technical Quality:Technically difficult study 2D ECHO LV Diastolic Diameter PLAX 3.3 cm 4.2 - 5.9 / 3.9 - 5.3 cm LV Systolic Diameter PLAX 2.6 cm IVS Diastolic Thickness 0.7 cm 0.6 - 1.0 / 0.6 - 0.9 cm LVPW Diastolic Thickness 0.5 cm 0.6 - 1.0 / 0.6 - 0.9 cm LV Relative Wall Thickness 0.4 RV Internal Dim ED PLAX 1.8 cm DOPPLER Mitral E Point Velocity 69.1 cm/s Mitral A Point Velocity 111.0 cm/s Mitral E to A Ratio 0.6 TR Peak Velocity 254.0 cm/s TR Peak Gradient 25.8 mmHg FINDINGS LEFT VENTRICLE Normal left ventricular size. Wall thickness is normal. The left ventricular systolic function is normal with an estimated ejection fraction in the range of 55-60%. Doppler parameters are consistent with impaired left ventricular relaxtion (grade 1 diastolic dysfun ction). RIGHT VENTRICLE Normal right ventricular size and systolic function. LEFT ATRIUM The left atrial size is normal. RIGHT ATRIUM The right atrial size is normal. ATRIAL SEPTUM Normal atrial septal thickness AORTA The aortic root and proximal ascending aorta are normal in size on limited imaging. MITRAL VALVE Mitral annular calcification is present. Trace mitral valve regurgitation. No mitral valve stenosis. AORTIC VALVE No aortic valve stenosis or regurgitation. TRICUSPID VALVE Grossly normal tricuspid valve. No tricuspid valve stenosis. There is trace tricuspid valve regurgitation. PULMONARY VALVE The pulmonary valve is not well visualized. VESSELS The inferior vena cava is normal in size. PERICARDIUM No pericardial effusion. Gaurang Milner DO (Electronically Signed) Final Date:05 September 2017 16:58
== END 2017-09-05 14:00 | disposition home or self-care (01) ==
LOC: NEPD 20:44 → NEDA 23:33 → NEPHCDU 09-04 00:38
PROVIDERS: ADMIT Hospitalist; ATTEND Hospitalist
DX: G45.9 Transient cerebral ischemic attack, unspecified (principal); S32.050A Wedge compression fracture of fifth lumbar vertebra, initial encounter for closed fracture; I10 Essential (primary) hypertension; E78.00 Pure hypercholesterolemia, unspecified; K59.00 Constipation, unspecified; E55.9 Vitamin D deficiency, unspecified; J34.1 Cyst and mucocele of nose and nasal sinus; G31.9 Degenerative disease of nervous system, unspecified; M47.897 Other spondylosis, lumbosacral region; M47.896 Other spondylosis, lumbar region; F03.90 Unspecified dementia, unspecified severity, without behavioral disturbance, psychotic disturbance, mood disturbance, and anxiety; Z85.828 Personal history of other malignant neoplasm of skin; X58.XXXA Exposure to other specified factors, initial encounter
CPT/HCPCS: 70450; 70551; 72131; 80053; 80061; 82306; 82607; 82948; 83036; 84443; 84484; 85025; 85610; 85730; 93005; 93306; 93880; 96374; 97110; 97163; 97530; 99285; G0378; G8987; G8988; J2270; L0200; L0484

== ENCOUNTER 2017-10-05 11:44 | Emergency (ER) | payer MEDICARE, OTHER ==
[~2017-10-05] VITALS: Ht 160 cm; Wt 58.0 kg
[~2017-10-05 11:44] MED LIST changes: -ACET325T11 PO; +ASA325 PO; -CALC600T10 PO; +CHOL1000 PO; -CRAN1000 PO; -DICL75 PO; -META55.43 PO; -OCUVTAB PO; -PHILCAP2 PO; +PLAV75TA29 PO; -SALI0.65; +SALI0.653 EACH NARE; -TRAM50 PO; -VITA500S3 PO; -VYTO10TA32 PO; +VYTO10TA8 PO; -soy lecithin PO
[2017-10-05 11:48] VITALS: BP 123/60; PULSE 95; RESP 16; TEMP 99
[2017-10-05] MEDS ORDERED: AGGR20025 PO (12:02)
--- NOTE | 2017-10-05 13:01 | RADRPT ---
EXAM DATE: 10/05/2017 12:56 PM EDT AGE/SEX: 82 years / Female INDICATIONS: Pelvic pain after fall. CLINICAL DATA: This is the patient's initial encounter. Patient reports that signs and symptoms have been present for 1 day and indicates a pain score of 5/10. MEDICAL/SURGICAL HISTORY: . Dementia. Hypertension. Syncope. Skin cancer. . Tonsillectomy. Sin us surgery. Right ear surgery. Skin cancer removed. COMPARISON: [facility], PELVIS AP ONLY, 01/18/2015. . FINDINGS: Single AP view of the pelvis demonstrates no fracture or dislocation. Both hip joints demonstrate mil d osteoarthritis similar to the prior examination. Sacroiliac joints demonstrate no abnormality. No s oft tissue abnormality or radiopaque foreign body is identified. CONCLUSION: No acute pelvis abnormality is identified. Electronically signed by: Slick Torre MD 10/05/2017 1:00 PM EDT
--- NOTE | 2017-10-05 13:02 | RADRPT ---
EXAM DATE: 10/05/2017 12:56 PM EDT AGE/SEX: 82 years / Female INDICATIONS: Fall. Previous L5 fracture from 5 weeks ago, re-check. CLINICAL DATA: This is the patient's initial encounter. Patient reports that signs and symptoms have been present for 1 day and indicates a pain score of 0/10. MEDICAL/SURGICAL HISTORY: . Dementia. Hypertension. Syncope. Skin cancer. . Tonsillectomy. Sin us surgery. Right ear surgery. Skin cancer removed. COMPARISON: [facility] [place], CT LUMBAR SPINE W/O CONTRAST, 09/03/2017. . 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 Mild compression deformity of the superior endplate of L5 appears similar to CT examination from August 27, 2016. No n ew fracture identified. CONCLUSION: Mild compression fracture superior endplate of L5 similar in appearance to CT examination from September 03. Electronically signed by: Alen Giles MD 10/05/2017 1:00 PM EDT
--- NOTE | 2017-10-05 13:04 | RADRPT ---
EXAM DATE: 10/05/2017 12:57 PM EDT AGE/SEX: 82 years / Female INDICATIONS: Right shoulder pain after fall. CLINICAL DATA: This is the patient's initial encounter. Patient reports that signs and symptoms have been present for 1 day and indicates a pain score of 6/10. MEDICAL/SURGICAL HISTORY: . Dementia. Hypertension. Syncope. Skin cancer. . Tonsillectomy. Sin us surgery. Right ear surgery. Skin cancer removed. COMPARISON: No prior [facility] exams available for comparison. FINDINGS: 4 views of the right shoulder demonstrate no fracture or dislocation. Acromioclavicular joint is inta ct. No acute soft tissue abnormality is identified. Visualized right ribs demonstrate no acute fractu re. Lungs demonstrate no acute finding. CONCLUSION: No acute right shoulder abnormality is identified. Electronically signed by: Slick Torre MD 10/05/2017 1:03 PM EDT
--- NOTE | 2017-10-05 13:13 | RADRPT ---
EXAM DATE: 10/05/2017 1:06 PM EDT AGE/SEX: 82 years / Female INDICATIONS: Right elbow pain and laceration after fall. CLINICAL DATA: This is the patient's initial encounter. Patient reports that signs and symptoms have been present for 1 day and indicates a pain score of 10/10. MEDICAL/SURGICAL HISTORY: . Dementia. Hypertension. Syncope. Skin cancer. . Tonsillectomy. Sin us surgery. Right ear surgery. Skin cancer removed. COMPARISON: No prior [place] exams available for comparison. FINDINGS: 4 views of the right elbow demonstrate no fracture or dislocation. No joint effusion is identified. N o soft tissue abnormality or radiopaque foreign body is appreciated. CONCLUSION: No acute right elbow abnormality is identified. Electronically signed by: Slick Torre MD 10/05/2017 1:12 PM EDT
--- NOTE | 2017-10-05 13:15 | PD ---
HPI Chief Complaint: fall Time Seen by Provider: 11:57 Travel History International Travel<30 days: No Contact w/Intl Traveler<30days: No Traveled to known affect area: No History of Present Illness HPI 82-year-old female was walking into the house and not using her cane properly when her family member states she fell. Her family member states she has dementia and is near her baseline. The patient did not hit her head or lose consciousness. She notes pain to her right shoulder and elbow. The daughter is also concerned given she had a recent injury to her back. The patient denies back pain or other concurrent complaints. The fall was from standing. History is mainly supplemented from the daughter. PFSH Past Medical History Asthma: No Blood Disorders: No Anxiety: No Depression: No Heart Rhythm Problems: No Cancer: No Cardiovascular Problems: No High Cholesterol: No Chemotherapy: No Chest Pain: No Congestive Heart Failure: No COPD: No Dementia: Yes Diabetes: No Diminished Hearing: No Endocrine: No Genitourinary: No Hypertension: Yes Immune Disorder: No Musculoskeletal: No Neurologic: Yes (syncope) Psychiatric: No Reproductive: No Respiratory: No Immunizations Current: Yes Radiation Therapy: No Sleep Apnea: No Thyroid Disease: No ?: Not Menopausal: Yes : 3 Para: 2 Past Surgical History Other Surgery: Yes (SINUS SURGERY, RIGHT EAR SURGERY) Social History Alcohol Use: No Tobacco Use: No Substance Use: No Allergies-Medications (Allergen,Severity, Reaction): Coded Allergies: No Known Allergies (Unverified Allergy, Unknown, 10/05/17) Reported Meds & Prescriptions Reported Meds & Active Scripts Active Gnp Vitamin D3 Extra Stre (Cholecalciferol) 1,000 Unit Tab 1,000 Units PO DAILY Reported Aggrenox (Dipyridamole/Aspirin) 200-25 Mg Cap 1 Cap PO BID Saline Nasal [place] (Sodium Chloride) 0.65% [place] 2 [place] EACH NARE DIRECTED PRN Vytorin (Ezetimibe-Simvastatin) 10-20 Mg Tab 1 Tab PO HS Diovan Hct (Valsartan-Hydrochlorothiazide) 160-12.5 Mg Tab 1 Tab PO DAILY Review of Systems ROS Limitations: Poor Historian Except as stated in HPI: all other systems reviewed are Neg Physical Exam Exam Limitations: Poor Historian Narrative General: 82 y/o patient in no apparent distress Skin: trauma noted to right elbow with laceration Eyes: Pupils equal, eomi ENT: no septal hematoma NECK: no pain with palpation and range of motion in midline Cardiovascular: Regular rate and rhythm Respiratory: Normal respiratory effort noted, clear to auscultation bilaterally Abdomen: soft, nontender, nondistended Back: No step-offs, midline spine nontender with palpation Extremities: Pain with palpation of right shoulder and elbow, neurovascularly intact, no pain with rom of other joints Neuro: awake, alert, sensation and motor grossly intact Data Data Last Documented VS Vital Signs Date Time Temp Pulse Resp B/P (MAP) Pulse Ox O2 Delivery O2 Flow Rate FiO2 10/05/17 11:55 96 Room Air 10/05/17 11:48 99.0 95 16 123/60 (81) Orders Orders Elbow, Complete (4 Vws) (10/05/17 12:06) Shoulder, Complete (>2vws) (10/05/17 12:06) Pelvis, Ap Only (Routine) (10/05/17 ) Spine, Lumbar Comp W/Obliq (10/05/17 ) Ed Discharge Order (10/05/17 13:39) MDM Medical Decision Making Medical Screen Exam Complete: Yes Emergency Medical Condition: Yes Medical Record Reviewed: Yes (Past history confirmed) Interpretation(s) Last 24 hours Impressions Shoulder X-Ray 10/05/17 1206 Signed Impressions: CONCLUSION: No acute right shoulder abnormality is identified. Elbow X-Ray 10/05/17 1206 Signed Impressions: CONCLUSION: No acute right elbow abnormality is identified. Pelvis X-Ray 10/05/17 0000 Signed Impressions: CONCLUSION: No acute pelvis abnormality is identified. Lumbar Spine X-Ray 10/05/17 0000 Signed Impressions: CONCLUSION: Mild compression fracture superior endplate of L5 similar in appearance to CT e xamination from September 03. Differential Diagnosis Fracture, strain, laceration Narrative Course Will check trauma imaging and laceration will be repaired. Family agrees to limited trauma imaging workup and states she recently had a workup for possible syncope xrays without emergent injury. Laceration was a dirty wound so will place on Keflex. Patient denies any new complaints and states that they are feeling better. family happy with care, all questions answered. family knows that follow up is incumbent on them and to return to the emergency room immediately if new or worsening symptoms develop. family given strict return precautions, vitals reviewed and are normal, agrees to further workup as an outpatient. Diagnosis Primary Impression: Elbow laceration Qualified Codes: S51.011A - Laceration without foreign body of right elbow, initial encounter Additional Impression: Right shoulder pain Qualified Codes: M25.511 - Pain in right shoulder Patient Instructions: General Instructions Additional Instructions: return as needed, follow with primary this week, tylenol as needed Med/Other Pt SpecificInfo: Prescription(s) given Scripts Cephalexin (Keflex) 500 Mg Cap 500 MG PO Q12H for Infection for 7 Days, #14 CAP 0 Refills Prov: Brisa Santizo MD 10/05/17 Disposition: 01 DISCHARGE HOME Condition: Stable Brisa Santizo MD October 05, 2017 13:15
--- NOTE | 2017-10-05 13:31 | PD ---
Physical Exam Time Seen by Provider: 13:30 Data Data Last Documented VS Vital Signs Date Time Temp Pulse Resp B/P (MAP) Pulse Ox O2 Delivery O2 Flow Rate FiO2 10/05/17 11:55 96 Room Air 10/05/17 11:48 99.0 95 16 123/60 (81) Orders Orders Elbow, Complete (4 Vws) (10/05/17 12:06) Shoulder, Complete (>2vws) (10/05/17 12:06) Pelvis, Ap Only (Routine) (10/05/17 ) Spine, Lumbar Comp W/Obliq (10/05/17 ) MDM Medical Record Reviewed: Yes Supervised Visit with SONIYA: No Procedures Procedure Narrative LACERATION LOCATION: Right elbow LENGTH: 5 cm NUMBER OF STITCHES/LINDA: 4 linda REPAIR: The area of the laceration was prepped with Betadine and sterilely draped. The laceration was infiltrated with 1% lidocaine without epinephrine. The wound was copiously irrigated and explored without evidence of foreign body , tendon injury or neurovascular injury. The wound was closed using linda. This was a single layer repair. A sterile dressing was applied. The patient was advised to keep the dressing clean and dry. Patient tolerated the procedure well. Condition: Stable AndrewBouchra NAVARRO October 05, 2017 13:31
[2017-10-05] MEDS ORDERED: CEPH-460 PO (13:40)
--- NOTE | 2017-10-06 14:27 | EKG ---
Date Performed: 10/05/2017 Time Performed: 11:57:40 PTAGE: 82 years EKG: Sinus rhythm NORMAL ECG INTERPRETATION BASED ON A DEFAULT AGE OF 40 YEARS PREVIOUS TRACING : 09/03/2017 21.22 DOCTOR: Michael Aldridge Interpretating Date/Time 10/06/2017 14:25:46
== END 2017-10-05 14:18 | disposition home or self-care (01) ==
LOC: NEPE 11:44
DX: S51.011A Laceration without foreign body of right elbow, initial encounter (principal); M25.511 Pain in right shoulder; I10 Essential (primary) hypertension; W19.XXXA Unspecified fall, initial encounter; Y93.01 Activity, walking, marching and hiking; Y92.009 Unspecified place in unspecified non-institutional (private) residence as the place of occurrence of the external cause
CPT/HCPCS: 12002; 72110; 72170; 73030; 73080; 93005

== ENCOUNTER 2017-10-13 16:31 | Emergency (ER) | payer MEDICARE, OTHER ==
[~2017-10-13] VITALS: Ht 165.1 cm; Wt 57.0 kg
[~2017-10-13 16:31] MED LIST changes: +AGGR20025 PO; -ASA325 PO; +CEPH-460 PO; -PLAV75TA29 PO
[2017-10-13 16:34] VITALS: BP 112/53; PULSE 85; RESP 18; TEMP 98.2; O2SAT 97
[2017-10-13] MEDS ORDERED: ACETAMINOPHEN 325 MG TAB PO ONE (17:15)
[2017-10-13] MEDS ORDERED: SULFAMETHOXAZOLE-TRIMETHOPRIM DS 800-160 MG TAB PO ONE (17:15)
--- NOTE | 2017-10-13 17:21 | PD ---
HPI Chief Complaint: Fall Time Seen by Provider: 16:56 Travel History International Travel<30 days: No Contact w/Intl Traveler<30days: No Traveled to known affect area: No History of Present Illness HPI 82-year-old female complains of right shoulder pain. Patient fell 8 days ago. Patient was seen in emergency room an x-ray of the right shoulder and right elbow was done at that time which shows no acute bony injury. Patient had laceration the right elbow olecranon area. Laceration was repaired with linda. Patient was given prescription for Keflex 500 mg twice a day. Last dose of Keflex was yesterday. Family member noticed increasing discoloration on the right upper arm recently. Patient also complains of increasing pain on the right shoulder for the past several days. Patient denies any new injury. Family member reported no fever chills. Family member states that patient had trouble ambulating because of low back pain and arm pain. Patient has appointment with orthopedist for follow-up. Patient had home health care. PFSH Past Medical History Hx Anticoagulant Therapy: Yes (AGGRENOX) Asthma: No Blood Disorders: No Anxiety: No Depression: No Heart Rhythm Problems: No Cancer: No Cardiovascular Problems: No High Cholesterol: No Chemotherapy: No Chest Pain: No Congestive Heart Failure: No COPD: No Dementia: Yes Diabetes: No Diminished Hearing: No Endocrine: No Genitourinary: No Hypertension: Yes Immune Disorder: No Musculoskeletal: No Neurologic: Yes (syncope) Psychiatric: No Reproductive: No Respiratory: No Immunizations Current: Yes Radiation Therapy: No Sleep Apnea: No Thyroid Disease: No Tetanus Vaccination: Unknown Influenza Vaccination: Yes Menopausal: Yes : 3 Para: 2 Past Surgical History Other Surgery: Yes (SINUS SURGERY, RIGHT EAR SURGERY) Social History Alcohol Use: No Tobacco Use: No Substance Use: No Allergies-Medications (Allergen,Severity, Reaction): Coded Allergies: No Known Allergies (Unverified Allergy, Unknown, 10/13/17) Reported Meds & Prescriptions Reported Meds & Active Scripts Active Bactrim DS (Sulfamethoxazole-Trimethoprim) 800-160 Mg Tab 1 Tab PO BID Gnp Vitamin D3 Extra Stre (Cholecalciferol) 1,000 Unit Tab 1,000 Units PO DAILY Reported Aggrenox (Dipyridamole/Aspirin) 200-25 Mg Cap 1 Cap PO BID Saline Nasal [place] (Sodium Chloride) 0.65% [place] 2 [place] EACH NARE DIRECTED PRN Vytorin (Ezetimibe-Simvastatin) 10-20 Mg Tab 1 Tab PO HS Diovan Hct (Valsartan-Hydrochlorothiazide) 160-12.5 Mg Tab 1 Tab PO DAILY Review of Systems General / Constitutional: No: Fever Eyes: No: Visual changes HENT: No: Headaches Cardiovascular: No: Chest Pain or Discomfort Respiratory: No: Shortness of Breath Gastrointestinal: No: Abdominal Pain Genitourinary: No: Dysuria Musculoskeletal: Positive: Pain Skin: No Rash Neurologic: No: Weakness Psychiatric: No: Depression Endocrine: No: Polydipsia Hematologic/Lymphatic: No: Easy Bruising Physical Exam Narrative GENERAL: Well-nourished, well-developed patient. SKIN: Focused skin assessment warm/dry. HEAD: Normocephalic. EYES: No scleral icterus. No injection or drainage. NECK: Supple, trachea midline. No JVD or lymphadenopathy. CARDIOVASCULAR: Regular rate and rhythm without murmurs, gallops, or rubs. RESPIRATORY: Breath sounds equal bilaterally. No accessory muscle use. GASTROINTESTINAL: Abdomen soft, non-tender, nondistended. MUSCULOSKELETAL: Patient has ecchymosis on the medial aspect of the right upper arm. No redness no heat noted. Mild to moderate diffuse tenderness of the right shoulder joint. Healing wound right olecranon area. Mild redness associate with the wound. Linda in place. Full range of motion of shoulder and the elbow. BACK: Nontender without obvious deformity. No CVA tenderness. Neurologic exam normal. Data Data Last Documented VS Vital Signs Date Time Temp Pulse Resp B/P (MAP) Pulse Ox O2 Delivery O2 Flow Rate FiO2 10/13/17 16:34 98.2 85 18 112/53 (72) 97 Orders Orders Shoulder, Limited(2vws) (10/13/17 17:08) Sulfamet-Trimeth Ds 800-160 Mg (Bactrim (10/13/17 17:15) Acetaminophen (Tylenol) (10/13/17 17:15) Wound Care (10/13/17 17:38) MDM Medical Decision Making Medical Screen Exam Complete: Yes Emergency Medical Condition: Yes Interpretation(s) Last Impressions Shoulder X-Ray 10/13/17 7353 Signed Impressions: CONCLUSION: Unremarkable study and not significantly changed . Differential Diagnosis Differential diagnosis including acute exacerbation of right shoulder pain, fracture, dislocation. Narrative Course 82-year-old female with increase in pain on the right shoulder. Status post injury 8 days ago. Tylenol 650 mg p.o. given. Bactrim DS 1 tablet p.o. given. Sling right arm. Diagnosis Primary Impression: Visit for wound check Additional Impression: Contusion of right shoulder Qualified Codes: S40.011D - Contusion of right shoulder, subsequent encounter Patient Instructions: General Instructions Additional Instructions: Tylenol 4 times a day as needed for pain. Bactrim DS as directed. Wound care daily. Sling applied to right arm. Follow-up with personal physician or return in 6 day for staple removal. Return sooner if any increasing redness swelling. Follow-up with orthopedist as directed. Med/Other Pt SpecificInfo: Prescription(s) given Scripts Sulfamethoxazole-Trimethoprim (Bactrim DS) 800-160 Mg Tab 1 TAB PO BID for Infection, #14 TAB 0 Refills Prov: Wilber Moya MD 10/13/17 Disposition: 01 DISCHARGE HOME Condition: Stable Wilber Moya MD Oct 13, 2017 17:21
--- NOTE | 2017-10-13 17:28 | RADRPT ---
EXAM DATE: 10/13/2017 5:24 PM EDT AGE/SEX: 82 years / Female INDICATIONS: Right shoulder pain post fall today CLINICAL DATA: This is the patient's initial encounter. Patient reports that signs and symptoms have been present for 1 day and indicates a pain score of 6/10. MEDICAL/SURGICAL HISTORY: None. None. COMPARISON: [facility] – [place], SHOULDER RIGHT COMPLETE (>2VWS), 10/05/2017. . FINDINGS: No definite fractures, or dislocations are identified. No definite lytic or sclerotic les ion is seen. The joint spaces are well maintained. CONCLUSION: Unremarkable study and not significantly changed . Electronically signed by: Fanny Nguyen MD 10/13/2017 5:27 PM EDT
[2017-10-13] MEDS ORDERED: BACT800T5 PO (17:37)
== END 2017-10-13 18:09 | disposition home or self-care (01) ==
LOC: PHED 16:31
DX: S51.011D Laceration without foreign body of right elbow, subsequent encounter (principal); S40.011D Contusion of right shoulder, subsequent encounter; W19.XXXD Unspecified fall, subsequent encounter
CPT/HCPCS: 73030; 99283